=== PATIENT | male | born 2000 | race Hispanic/Latino ===

== ENCOUNTER 2021-09-17 18:36 | Emergency (ER) | payer BC ==
--- NOTE | 2021-09-17 20:28 | RAD REPORT ---
EXAM DESCRIPTION: RAD - Knee Right 3 View - 09/17/2021 7:47 pm CLINICAL HISTORY: Right knee pain status post injury FINDINGS: No fracture or dislocation is seen.
--- NOTE | 2021-09-17 20:48 | ER ---
Nurse's Notes [facility] Name: Gerson Kessler Jr Age: 20 yrs Sex: Male : 2000 Arrival Date: 09/17/2021 Time: 18:39 Bed 15 Private MD: Diagnosis: Pain in right knee Presentation: 09/17 18:51 Chief complaint: Patient states: Fall just [employer]. R knee pain that he relocated himself ll1 [employer]. Coronavirus screen: Vaccine status: Patient reports receiving the 2nd dose of the covid vaccine. Client denies travel out of the [place] in the last 14 days. At this time, the client does not indicate any symptoms associated with coronavirus-19. Ebola Screen: Patient denies travel to an Ebola-affected area in the 21 days before illness onset. Initial Sepsis Screen: Does the patient meet any 2 criteria? No. Patient's initial sepsis screen is negative. Does the patient have a suspected source of infection? Yes: Bone or joint infection. Risk Assessment: Do you want to hurt yourself or someone else? Patient reports no desire to harm self or others. Onset of symptoms was September 17, 2021. 18:51 Method Of Arrival: EMS ll1 18:51 Acuity: KASIA 3 ll1 Triage Assessment: 18:52 General: Appears uncomfortable, Behavior is calm, cooperative, appropriate for age. ll1 Pain: Complains of pain in R knee Pain currently is 4 out of 10 on a pain scale. Quality of pain is described as aching. Musculoskeletal: Circulation, motion, and sensation intact. Capillary refill < 3 seconds. Historical: - Allergies: 18:50 No Known Allergies; ll1 - PMHx: 18:50 low heart rate; Bipolar disorder; ll1 - PSHx: 18:50 None; ll1 - Immunization history:: Adult Immunizations up to date, Client reports receiving the 1st dose of the Covid vaccine. - Social history:: Smoking status: Patient denies any tobacco usage or history of. Screenin:54 Abuse screen: Denies threats or abuse. Nutritional screening: No deficits noted. ll1 Tuberculosis screening: No symptoms or risk factors identified. Fall Risk IV access (20 points). Ambulatory Aid- Crutches/Cane/Walker (15 pts). Gait- Weak (10 pts.). Total Marquez Fall Scale indicates High Risk Score (45 or more points). Fall prevention measures have been instituted. Side Rails Up X 2 Placed Close to Nursing Station Frequent Obs/Assessments Occuring Family Present and informed to notify staff if the need to leave the bedside As available patient and family educated on Fall Prevention Program and Strategies. Assessment: 19:50 Reassessment: Patient appears in no apparent distress at this time. Patient and/or ke1 family updated on plan of care and expected duration. Pain level reassessed. Patient is alert, oriented x 3, equal unlabored respirations, skin warm/dry/pink. General: Appears in no apparent distress. comfortable, Behavior is appropriate for age. Pain: Denies pain. Vital Signs: 18:51 BP 144 / 95; Pulse 78; Resp 17; Temp 99.0; Pulse Ox 96% on R/A; Weight 77.11 kg; Height ll1 5 ft. 4 in. (162.56 cm); Pain 4/10; 18:51 Body Mass Index 29.18 (77.11 kg, 162.56 cm) ll1 ED Course: 18:39 Patient arrived in ED. ds4 18:40 Julio Raman PA is PHCP. m 18:40 Samantha Caceres MD is Attending Physician. jm 18:50 Maci Garner, ELADIO is Primary Nurse. ll1 18:50 Arm band placed on Patient placed in an exam room, on a stretcher. ll1 18:52 Triage completed. ll1 18:53 Maintain EMS IV. Dressing intact. Good blood return noted. Site clean \T\ dry. Gauge \T\ ll 1 site: 20 R AC. 18:55 Patient has correct armband on for positive identification. Placed in gown. Bed in low ll1 position. Call light in reach. Client placed on continuous cardiac and pulse oximetry monitoring. NIBP monitoring applied. 19:49 Knee Right 3 View XRAY In Process Unspecified. EDMS 20:47 Prakash Rangel MD is Referral Physician. [facility] 21:25 No provider procedures requiring assistance completed. IV discontinued. ke1 Administered Medications: No medications were administered Medication: 18:55 VIS not applicable for this client. ll1 Outcome: 20:47 Discharge ordered by . jmm 21:25 Discharged to home with crutches, knee brace ke1 21:25 Condition: good 21:25 Discharge instructions given to patient. 21:27 Patient left the ED. ke1 Signatures: Dispatcher [employer] Julio Guerrero PA PA jmm Swanson, Donovan ds4 Maci Garner RN RN ll1 Marycruz Magana RN RN ke1
--- NOTE | 2021-09-17 20:48 | EDPHYS ---
Physician Documentation [facility] Name: Gerson Kessler Jr Age: 20 yrs Sex: Male : 2000 Arrival Date: 09/17/2021 Time: 18:39 Bed 15 Private MD: ED Physician Samantha Caceres HPI: 09/17 23:04 This 20 yrs old Male presents to ER via EMS with complaints of Knee pain. jmm 23:04 The patient presents with an injury, pain. Onset: The symptoms/episode began/occurred jmm acutely, just prior to arrival. Modifying factors: The symptoms are alleviated by nothing. the symptoms are aggravated by nothing. This is a 20-year-old male with a history of bipolar that presents emerged department with right knee pain. Patient states he slipped in the shower and noticed that his right kneecap was dislocated. Patient move the kneecap back complaints. Patient states still having pain afterwards. Patient arrived EMS. Patient is currently not in much pain due to administration of analgesics in route.. Historical: - Allergies: 18:50 No Known Allergies; ll1 - PMHx: 18:50 low heart rate; Bipolar disorder; ll1 - PSHx: 18:50 None; ll1 - Immunization history:: Adult Immunizations up to date, Client reports receiving the 1st dose of the Covid vaccine. - Social history:: Smoking status: Patient denies any tobacco usage or history of. ROS: 23:04 Constitutional: Negative for fever, chills, and weight loss, Cardiovascular: Negative jmm for chest pain, palpitations, and edema, Respiratory: Negative for shortness of breath, cough, wheezing, and pleuritic chest pain. 23:04 MS/extremity: Positive for injury or acute deformity, pain. 23:04 All other systems are negative. Exam: 23:04 Constitutional: This is a well developed, well nourished patient who is awake, alert, jmm and in no acute distress. Head/Face: atraumatic. Eyes: EOMI, no conjunctival erythema appreciated ENT: Moist Mucus Membranes Neck: Trachea midline, Supple Chest/axilla: Normal chest wall appearance and motion. Cardiovascular: Regular rate and rhythm. No edema appreciated Respiratory: Normal respirations, no respiratory distress appreciated Abdomen/GI: Non distended Back: Normal ROM Skin: General appearance color normal 23:04 Musculoskeletal/extremity: ROM: intact in all extremities, Mild tenderness noted to the right knee both medial and laterally, compartments are soft, full dorsalis pedis pulse, painful range of motion appreciated, neurovascular intact. 23:04 Skin: Appearance: Color: normal in color. 23:04 Neuro: Orientation: is normal, Mentation: is normal, Memory: is normal. 23:04 Psych: Behavior/mood is pleasant, cooperative. Vital Signs: 18:51 BP 144 / 95; Pulse 78; Resp 17; Temp 99.0; Pulse Ox 96% on R/A; Weight 77.11 kg; Height ll1 5 ft. 4 in. (162.56 cm); Pain 4/10; 18:51 Body Mass Index 29.18 (77.11 kg, 162.56 cm) ll1 MDM: 18:55 Patient medically screened. [facility] 20:47 Data reviewed: vital signs, nurses notes. Counseling: I had a detailed discussion with yayo the patient and/or guardian regarding: the historical points, exam findings, and any diagnostic results supporting the discharge/admit diagnosis, the need for outpatient follow up, to return to the emergency department if symptoms worsen or persist or if there are any questions or concerns that arise at home. 09/17 18:55 Order name: Knee Right 3 View XRAY; Complete Time: 20:29 [facility] 09/17 20:30 Order name: Knee Immobilizer; Complete Time: 21:02 [facility] 09/17 21:02 Order name: Crutches; Complete Time: 21:02 ke1 Administered Medications: No medications were administered Disposition: 09/18 14:41 Co-signature as Attending Physician, Smaantha Caceres MD STAFF ATTESTATION STATEMENT I sd2 was immediately available on-site in the Emergency Department for consultation in the care of the patient. Samantha Caceres MD. Disposition Summary: 09/17/21 20:47 Discharge Ordered Location: Home [facility] Condition: Stable [facility] Diagnosis - Pain in right knee [facility] Followup: [facility] - With: Prakash Rangel MD - When: 2 - 3 days - Reason: Recheck today's complaints, Continuance of care, Re-evaluation by your physician Discharge Instructions: - Discharge Summary Sheet [facility] - Patellar Dislocation [facility] - Acute Knee Pain, Adult [facility] Forms: - Medication Reconciliation Form jmm - Thank You Letter jmm - Antibiotic Education jmm - Prescription Opioid Use jmm - Work release form eb Prescriptions: - Diclofenac Sodium 75 mg Oral Tablet Sustained Release - take 1 tablet by ORAL route 2 times per day; 30 tablet; Refills: 0, Product jmm Selection Permitted Signatures: Dispatcher [employer] Julio Guerrero PA PA jmm Lewis, Lynsay, RN RN ll1 Marycruz Magana RN RN ke1 Samantha Caceres MD MD sd2
[2021-09-17 21:34] VITALS: BP 144/95; TEMP 99; O2SAT 96
== END 2021-09-17 21:27 | disposition home or self-care (01) ==
LOC: ER 18:36
DX: M25.561 Pain in right knee (principal)
CPT/HCPCS: 99283